=== PATIENT | female | born 1945 | race Caucasian/White ===

== ENCOUNTER 2021-05-22 07:52 | Day surgery (SDC) | payer MEDICARE, BC ==
[~2021-05-22] VITALS: Ht 160 cm; Wt 57.4 kg
[~2021-05-22 07:52] MED LIST: CALCIUM + D 6001 TAB PO; CENTRUM SILVER1 TA1 PO; CRESTOR 10MG10 MG PO; FLEXERIL 1010 MG/TAB PO; FLONASE NASAL S16 GM NS; FOLIC ACID 11 MG/TA1 PO; HUMIRA40 MG/0.1 SC; METHOTREXA2.5 MG/TAB PO; PREDNISONE 2.52.5 MG PO; PREMARIN VAG42.5 GM VG; PRILOSEC 20MG20 MG PO; VITAMIN D50000 I2 PO
[2021-05-22 08:38] VITALS: BP 129/70; PULSE 75; TEMP 98
[2021-05-22] MEDS ORDERED: LIPITOR20 MG PO (08:45)
[2021-05-22] MEDS ORDERED: AMITRIPTYLINE H10 M1 PO (08:46)
[2021-05-22] MEDS ORDERED: VITAMIN D31000 IU PO (08:47)
[2021-05-22] MEDS ORDERED: PROFERRIN ES12 MG PO (08:49)
[2021-05-22 11:05] VITALS: BP 108/67; PULSE 88; TEMP 97.1
--- NOTE | 2021-05-22 11:05 | NUR ---
Pt returns to [facility] from OR, awake and alert, VSS, denies pain to left foot, can feel touch and move toes. at bedside, call light in reach, side rails up x2.
[2021-05-22 11:20] VITALS: BP 110/79; PULSE 84
[2021-05-22 11:35] VITALS: BP 114/60; PULSE 79
--- NOTE | 2021-05-22 11:35 | NUR ---
Pt tolerates muffin, coffee, and water with no nausea. Denies pain. Awake and alert. Dr. Marroquin at bedside and talks with pt and her . Post-op shoe in place. VSS.
--- NOTE | 2021-05-22 11:47 | NUR ---
Pt up and gets dressed without difficulty, discharge instructions provided, IV discontinued to left hand. Pt to private car via wheelchair and left in care of her at this time.
== END 2021-05-22 11:47 | disposition home or self-care (01) ==
LOC: SDCO 07:52
DX: M89.472 Other hypertrophic osteoarthropathy, left ankle and foot (principal); M06.872 Other specified rheumatoid arthritis, left ankle and foot; M77.32 Calcaneal spur, left foot; K21.9 Gastro-esophageal reflux disease without esophagitis; J30.9 Allergic rhinitis, unspecified; M19.90 Unspecified osteoarthritis, unspecified site; R00.8 Other abnormalities of heart beat; E78.5 Hyperlipidemia, unspecified; E78.1 Pure hyperglyceridemia; M81.0 Age-related osteoporosis without current pathological fracture; Z79.899 Other long term (current) drug therapy; Z90.89 Acquired absence of other organs
CPT/HCPCS: J0690; J1100; J1885; J2704; J7120